=== PATIENT | female | born 1945 | race Caucasian/White ===

== ENCOUNTER 2019-11-04 08:09 | Inpatient (IN) | payer MEDICARE, OTHER, SELFPAY ==
[2019-11-04] VITALS (15 sets, daily range): BP systolic 93–145; BP diastolic 49–67; PULSE 60–85; RESP 9–20; TEMP 36.1–36.9; O2SAT 98–100; BMI 18.8
--- NOTE | 2019-11-04 | DI.RAD.S_ITS ---
PROCEDURE: XR PELVIS 1-2V INDICATIONS: POST OPERATIVE LEFT HIP TECHNIQUE: 1 view of the lower pelvis acquired. COMPARISON: None. FINDINGS: Bones: Patient is status post left total hip arthroplasty, with hardware components in expected positions. The hip joint appears congruent. The visualized bony structures appear intact. Soft tissues: Overlying postoperative changes are noted. No suspicious soft tissue densities. IMPRESSION: Postop changes from left total hip arthroplasty with anatomic alignment. Dictated by: Alphonso Guy M.D. on 11/04/2019 at 14:53 Approved by: Alphonso Guy M.D. on 11/04/2019 at 14:53
--- NOTE | 2019-11-04 | DI.RAD.S_ITS ---
PROCEDURE: XR HIP LT 1V INDICATIONS: INTRAOPERATIVE ANTERIOR TOTAL LEFT HIP TECHNIQUE: 2 view(s) of the hip acquired. COMPARISON: None. FINDINGS: Bones: Patient is status post left hip arthroplasty, with hardware components in expected positions. The hip joint appears congruent. The visualized bony structures appear intact. Soft tissues: Overlying postoperative changes are noted. No suspicious soft tissue densities. IMPRESSION: A single immediate postoperative image shows normal positioning after left total hip arthroplasty. Dictated by: Carl Jerez M.D. on 11/04/2019 at 14:13 Approved by: Carl Jerez M.D. on 11/04/2019 at 14:13
[2019-11-04] MEDS: LACTATED RINGERS 1,000 ML 42 ML IV ×3 (09:05→14:08)
[2019-11-04] MEDS: CELECOXIB 200 MG CAPSULE PO (09:08)
[2019-11-04] MEDS: ACETAMINOPHEN 325 MG TABLET 975 MG PO (09:08)
[2019-11-04] MEDS: PREGABALIN 75 MG CAPSULE PO (09:08)
--- NOTE | 2019-11-04 11:12 | PM.PREOP ---
Pre-operative Note Interval Note History & Physical reviewed/Exam performed by Physician: Yes Changes to H&P: No H&P completed within 30 days and has changed as indicated here:: Plan for L anterior KAY
[2019-11-04] MEDS: CEFAZOLIN 2 GM/100 ML FROZ.PIGGY IV ×2 (12:04→21:25)
--- NOTE | 2019-11-04 12:43 | SUR.OPER ---
Supine on padded Gilliam table with bilateral legs secured in padded positioning boots and suspended in positioning spars, operative leg in traction per surgeon. Head on one pillow. Arm on non-operative side secured on padded armboard <90 degrees abduction. Arm on operative side padded and resting across chest then secured with tape over sheet. Padded perineal post in place per surgeon.
[2019-11-04] MEDS: ROPIVACAINE 0.5% PF 5 MG/ML 20ML VIAL 60 ML INJ (12:49)
[2019-11-04] MEDS: KETOROLAC 30 MG/ML VIAL IV (12:50)
[2019-11-04] MEDS: MORPHINE 4 MG/ML INJ INJ (12:50)
[2019-11-04] MEDS: TRANEXAMIC ACID 1,000 MG VIAL 2000 MG IV (12:51)
--- NOTE | 2019-11-04 14:14 | PM.OP.1 ---
Operative Date/Time/Diagnoses Date of procedure: 11/04/19 Time of procedure: 14:14 Pre-op diagnosis: L hip OA Post-op diagnosis: same Procedure & Clinicians Procedure: L anterior KAY Same procedure as scheduled: Yes Indications: L hip OA Surgeon: Anup Vásquez Supervisor Cytogenetic Laboratory: [facility] Anesthesia Type: Spinal and MAC +/- Operative Notes Findings: L hip OA Closure Type: primary Specimen(s): none sent Prosthetic devices, grafts, tissues, transplants, or devices: [employer]hew R3 acetabular cup 52 mm outer diameter 52 mm liner with 36 mm inner diameter Size 8 standard offset anthology porous femoral stem Oxinium 36+ 0 femoral head 25 mm screw, 15 mm screw Estimated Blood Loss (mL): 200 Blood products transfused: none Procedure in detail: Patient was met in the preoperative holding area with a sense of surgery marked by . All last minute questions were answered. Patient is then brought back to the operating room where a spinal anesthetic was in place. She has been transferred onto the on a table and hand table boots were placed on bilateral feet. The left anterior hip was then prepped and draped normal sterile fashion. A time-out was performed verifying the site and side of surgery as well as the name of the patient. A 7 cm long incision was made over the hip in line with the long axis of the leg. This incision was made using 10. Blade followed by electrocautery and subcutaneous layer followed by a 10. Blade in the tensor fascia. A Allis clamp was then placed on the medial leaflet of the tensor fascia and the tensor was then retracted laterally. A Meyerding was then placed to retract the medial leaflet of the tensor fascia as well as the rectus and the ascending circumfex arteries were then coagulated. Capsulotomy was performed and the superior and inferior leaflets of the capsule were tagged. A reciprocating saw was then used to make a femoral neck cut. The femoral head was then removed with a corkscrew. An anterior acetabular wall retractor was then placed followed by a Cobra over the posterior wall the labrum was then removed as well as the pulvinar. X-ray was then brought in that at this time and reaming was done under fluoroscopic guidance. We reamed to a size 51 Reamer. We subsequently placed a 52 mm cup under fluoroscopic guidance. Two screws were then placed. A neutral 52 mm outside diameter 36 mm inside diameter liner was then placed. A femoral elevation hook was then placed the left leg was then externally rotated rotated 90? no traction was on the leg. The leg was then dropped on the floor and abducted. A Matthews retractor was then placed over the medial aspect of the calcar and a Hohmann was placed over the greater trochanter and the short external rotators and capsule were then released from the shoulder of the femoral neck greater trochanter junction. This gave us good access to the femoral canal. A canal finer was then used followed by a starting broach followed by a 2. Broken up sizing by ones to a size 8 broach this had good rotational stability calcar planer was then used. We trialed with a standard offset and 36 head +0. The hip was reduced the foot was externally rotated to 100? and found to be stable. The hip was then extended by placing the foot on the floor and the hip was again stable x-rays were brought in to verify the length as well as proper canal fill for the femoral stem. The hip was then dislocated the trial components were removed and a size 8 anthology stem with standard offset was placed followed by a 36+ 0 Oxinium head the hip was then reduced a final time taken through range of motion found to be stable the capsule was then closed by closing the tag sutures followed by running Ethibond suture. Local injection was then infiltrated the soft tissues followed by normal saline irrigation. A running 1. Vicryl was then used in the tensor fascia followed by a 1. Running Vicryl in the subcutaneous fat layer followed by 2-0 Vicryl in the superficial subcutaneous layer. Stratafix was then used in the subcuticular followed by Dermabond and a small Aquacel. Complications: none Post-operative Condition: stable Disposition: PACU Plan for aftercare: Weightbearing as tolerated left lower extremity. No precautions. Aspirin 81 mg b.i.d. for 6 weeks for DVT prophylaxis. Patient will be going to a [facility] facility as she does not have anyone at home to help provide care.
[2019-11-04] MEDS: DEXAMETHASONE 10 MG/ML VIAL 8 MG IV (14:35)
[2019-11-04] MEDS: SCOPOLAMINE 1 PATCH TOP (14:35)
[2019-11-04] MEDS: LACTATED RINGERS 1,000 ML 120 ML IV (15:35)
[2019-11-04] MEDS: OXYCODONE IR 5 MG TABLET PO (16:08)
[2019-11-04] MEDS: ACETAMINOPHEN 325 MG TABLET 650 MG PO ×2 (16:08→21:26)
[2019-11-04] MEDS: LACTATED RINGERS 1,000 ML 125 ML IV (16:09)
--- NOTE | 2019-11-04 16:51 | PT-IP ANOTE ---
PT orders received. Pt arrived late to floor and nursing is still assessing. Will follow up for PT eval morning of 11/05/19.
[2019-11-04 17:40] LABS: Add Manual Diff / Slide Review NO; Basophils Absolute Auto 0 /uL (0-100); Basophils Percent Auto 0.2 % (0-2); Eosinophils Absolute Auto 0 /uL (0-450); Hematocrit 35.3 % (36-46); Hemoglobin 11.9 g/dL (12.0-16.0); Lymphocytes Absolute Auto 600 /uL (1100-4500); Lymphocytes Percent Auto 4.7 % (25-40); Mean Corpuscular HGB Conc 33.7 % (30-36); Mean Corpuscular Hemoglobin 29.9 PG (26-34); Mean Corpuscular Volume 88.9 fL (80-100); Monocytes Absolute Auto 500 /uL (0-900); Monocytes Percent Auto 4.1 % (3-14); Neutrophils Absolute Auto 11300 /uL (1500-7000); Platelet Count 241 X10^3/uL (150-400); Red Blood Cell Count 3.98 X10^6/uL (4.0-5.2); Red Cell Distribution Width 14.2 % (11.6-14.8); White Blood Cell Count 12.4 X10^3/uL (4.5-11.0)
[2019-11-04] MEDS: ASPIRIN EC 81 MG TABLET PO (21:26)
[2019-11-04] MEDS: DOCUSATE 100 MG CAPSULE PO (21:26)
[2019-11-05] MEDS: LACTATED RINGERS 1,000 ML 125 ML IV (00:09)
[2019-11-05] MEDS: OXYCODONE IR 5 MG TABLET PO (03:56)
[2019-11-05] MEDS: CEFAZOLIN 2 GM/100 ML FROZ.PIGGY IV (03:57)
[2019-11-05 04:05] VITALS: BP 105/56; PULSE 78; RESP 16; TEMP 37.3; O2SAT 99
--- NOTE | 2019-11-05 06:41 | PC.NURSE ---
Pt has only had a small ammt of pain this night 11/08, she was encouraged to stay on top of it. VSS, lung sounds clear, CMS is intact, and aquacell dressing is clean/dry/intact. Patient has ambulated to the bathroom with ease and FWW. Bed is low and locked, IS was encouraged, SCD's are applied, call light is within reach.
[2019-11-05 06:56] LABS: Hematocrit 27.1 % (36-46); Hemoglobin 9.5 g/dL (12.0-16.0)
--- NOTE | 2019-11-05 07:47 | PM.PNPO.1 ---
Subjective Subjective Date Patient Seen: 11/05/19 Time Patient Seen: 07:48 Interval history: POD #1 s/p will hip arthroplasty anterior approach with Dr. Vásquez. The patient's pain overnight was well controlled. No complaints this morning. She would like go home today. Exam Vital Signs (past 8 hours): - 11/04/19 23:55 11/05/19 04:05 Temperature 98.4 F 99.2 F Pulse Rate 73 78 Respiratory Rate 16 16 Blood Pressure 93/60 105/56 L Pulse Oximetry 98 99 Oxygen Delivery Method Room Air Oxygen Flow Rate 0 Narrative Exam Narrative: Patient lying in bed in no acute distress. She is alert and oriented x3. Calf soft, compressible, nontender bilaterally. Dressing on left hip is CDI. She is able to actively dorsiflex plantar flex. Pulses are symmetrical. SCDs on and functioning. Objective Labs Result Diagrams: 11/05/19 06:25 Labs: Laboratory Results - last 24 hr 11/04/19 11/05/19 17:20 06:25 WBC 12.4 H RBC 3.98 L Hgb 11.9 L 9.5 L Hct 35.3 L 27.1 L MCV 88.9 MCH 29.9 MCHC 33.7 RDW 14.2 Plt Count 241 Neut % (Auto) 91.0 H Lymph % (Auto) 4.7 L Person % (Auto) 4.1 Eos % (Auto) 0.0 L Baso % (Auto) 0.2 Neut # (Auto) 71784 H Lymph # (Auto) 600 L Person # (Auto) 500 Eos # (Auto) 0 Baso # (Auto) 0 Assessment & Plan Post-op Postoperative Procedures: Procedures Operation Date: 11/04/19 10:15 Actual Procedures Side Surgeon p Total Hip Arthroplasty/Anterior Approach Left Anup Vásquez MD Patient mobilized physical therapy today. She will follow anterior hip precautions. Continue current pain control. She will need physical therapy set up on [facility]. ASA for DVT prophylaxis. If patient is mobilizing safely with adequate pain control cage she can go home today.
[2019-11-05 08:00] VITALS: BP 84/48; PULSE 66; RESP 16; TEMP 36.9; O2SAT 100
[2019-11-05 08:24] LABS: Hematocrit 27.3 % (36-46); Hemoglobin 9.6 g/dL (12.0-16.0); Mean Corpuscular Hemoglobin 30.9 PG (26-34); Mean Corpuscular Volume 88.3 fL (80-100); Platelet Count 198 X10^3/uL (150-400); Red Cell Distribution Width 13.9 % (11.6-14.8); White Blood Cell Count 9.1 X10^3/uL (4.5-11.0)
[2019-11-05] MEDS: LEVOTHYROXINE 75 MCG TABLET PO (08:29)
[2019-11-05] MEDS: ESCITALOPRAM 10 MG TABLET 20 MG PO (08:29)
[2019-11-05] MEDS: DOCUSATE 100 MG CAPSULE PO (08:35)
[2019-11-05] MEDS: ASPIRIN EC 81 MG TABLET PO (08:35)
[2019-11-05] MEDS: ACETAMINOPHEN 325 MG TABLET 650 MG PO (08:35)
--- NOTE | 2019-11-05 09:50 | PT.IIE ---
Current Diagnoses Unilateral primary osteoarthritis, left hip (11/04/19) Surgery Performed Operation Date: 11/04/19 10:15 Actual Procedures p Total Hip Arthroplasty/Anterior Approach(Left) - Anup Vásquez MD Surgical History (Last Updated 10/21/19 @ 09:14 by Meeta Jesus RN) H/O: hysterectomy (Acute ~1981) History of facelift (Acute ~2009) Hx of tonsillectomy (Acute ~1955) Medical History (Last Updated 10/21/19 @ 09:18 by Meeta Jesus RN) Anxiety (Acute) Bladder prolapse (Acute) Bradycardia (Acute) Easy bruisability (Acute) Hypothyroidism (Acute) Lyme disease (Acute ~1991) Osteoarthritis (Acute) Raynaud's phenomenon (Acute) Sponge kidney (Acute) TMJ (dislocation of temporomandibular joint) (Acute) Physical Therapy Inpatient Evaluation/Re-Eval M1 PT/OT-IP Prior Functional Status Start: 11/05/19 08:40 Freq: NEEDED Status: Active Protocol: Document 11/05/19 09:32 AW (Rec: 11/05/19 09:50 AW [id number]) Medical Review Prior Functional Status Medical History Reviewed Yes Diet/Fluid Consistency Regular Communication WNL Mobility and Gait Independent without AD. Pt states she was limited to about 1/2 mile walking in the past month due to left hip pain Activities of Daily Living and IADL's Independent with ADL's and IADL's. Pt drives. Social History Household Members friend(s) Living Arrangements House Number of Floors (Floors) Two Floors Number of Stairs To Enter/Railing? Level entrance. Pt enters on main level. Bottom level is an apartment where her friend lives. Her friend is also retired and is available to assist as needed. Home Environment Standard Height Toilet,Tub/ Shower Home Equipment Front Wheel Walker,Straight Cane Employment Status Retired Additional Social History Comment Pt lives on [address]. A friend rents the apartment in her basement and is available to assist. M2 PT-IP Current Condition Start: 11/05/19 08:40 Freq: NEEDED Status: Active Protocol: Document 11/05/19 09:32 AW (Rec: 11/05/19 09:50 AW [id number]) Physical Therapy Current Condition Current Condition Evaluation Date 11/05/19 Treatment Diagnosis s/p L KAY with anterior approach; difficulty in walking Precautions Anterior Hip Precautions No Hip Extension,No Hip External Rotation Weight Bearing Status Weight Bearing Status Weight Bear as Tolerated M3 PT-IP Subjective Start: 11/05/19 08:40 Freq: NEEDED Status: Active Protocol: Document 11/05/19 09:32 AW (Rec: 11/05/19 09:50 AW [id number]) Subjective Physical Therapy Visit Type Type Initial Evaluation Visit Start Time 09:02 Visit Stop Time 09:28 Total Visit Minutes 26 Physical Therapy Visit Comments Patient Comments Pt is pleasant and willing to participate with PT. Patient Goals To go home today - [facility] Therapy Pain Assessment Pain When Pain Assessed During Mobility Pain Present Pain Present Denied Pain Location Left Hip Intensity 0 Scale Used 0/10 at rest; unchanged with mobility Pain Management Techniques Timing of Activity with Medications M4 PT-IP Mobility and Gait Start: 11/05/19 08:40 Freq: NEEDED Status: Active Protocol: Document 11/05/19 09:32 AW (Rec: 11/05/19 09:50 AW [id number]) PT-Bed Mobility Assessment Supine to Sit Supine to Sit Standby Assistance Sit to Supine Sit to Supine Independent Scooting Scooting to Edge of Bed Independent PT-Transfer Assessment Sit to and From Stand Sit to and from Stand Standby Assistance,Use of Upper Extremities Equipment Transfer Assistive Device Gait Belt,Front Wheeled Walker Orthotic/Prosthetic Devices or Brace: No Transfers Transfer Destination Bed,Chair Transfer Technique pt ambulated with FWW Transfer Ability Level of Assist Standby Assistance,Use of Upper Extremities Comments Mobility Comments Pt found sitting up in chair. She stood using FWW SBA and cues to push off chair arms with UE's. After gait and bed mobility training, pt transferred back to chair with FWW SBA. Gait Assessment Gait Gait Assistance Required: Standby Assistance Distance (Feet) 250 Able to Maintain Weight Bearing Status Yes During Gait Assistive Devices Assistive Device Gait Belt,Front Wheeled Walker Orthotic/Prosthetic Devices or Brace: No Gait Deviations General Gait Pattern Antalgic,Decreased Stride Length,Decreased Feet Clearance,Step-to Gait Factors Limiting Gait Function Factors Limiting Gait Function Decreased Strength Comments Gait Comments Pt ambulated with FWW SBA using step-to pattern initially. She was able to equalize her step lengths and weightbearing in response to cues and maintained swing- through pattern for >150 feet with very light weightbearing through UE's on walker. She used the walker appropriately for balance and offloading the L LE. Stair Climbing Assessment Comments Stair Climbing Comments Not assessed. No stairs at home. PT-Balance Assessment Sitting Balance and Reactions Static Sitting Balance Ability Normal Dynamic Sitting Balance Ability Normal Standing Balance and Reactions Static Standing Balance Ability Good Dynamic Standing Balance Ability Good Device Used FWW M5 PT-IP Objective Assessments Start: 11/05/19 08:40 Freq: NEEDED Status: Active Protocol: Document 11/05/19 09:32 AW (Rec: 11/05/19 09:50 AW [id number]) Orientation Orientation/Cognition Level of Alertness Alert Orientation Name,Day of Week,Place, Situation Language Function Ability No Deficits Noted Safety Awareness Understands Safety Issues Memory Description No Deficits Noted Gross Range of Motion Upper Extremity ROM Assessment Within Functional Limits Lower Extremity ROM Assessment Left Impaired Strength Upper Extremity Strength Assessment Within Functional Limits Lower Extremity Strength Assessment Left Impaired Knee L flexion 4-/5 Ankle B 4+/5 Coordination Assessment Gross Coordination Gross Coordination WNL Sensation Assessment Sensation Gross Sensation WNL Comments Sensation Comments No deficits on clinical exam Muscle Tone Muscle Tone WNL Yes M6 PT-IP Treatment Start: 11/05/19 08:40 Freq: NEEDED Status: Active Protocol: Document 11/05/19 09:32 AW (Rec: 11/05/19 09:50 AW [id number]) Physical Therapy Treatment Exercises Exercises Ankle Pumps,Gluteal Sets,Quad Sets,Heel Slides Education Education Provided Precautions,Weight Bearing Status,Post-Op Packet,Safety Other Treatments Other Treatment Performed Educated pt on role of PT, plan of care, anterior hip precautions, weightbearing status, and safe use of FWW. Advised pt to continue using FWW at least until post-op appointment with surgeon and evaluation by outpatient PT. M7 PT-IP Assessment and Plan Start: 11/05/19 08:40 Freq: NEEDED Status: Active Protocol: Document 11/05/19 09:32 AW (Rec: 11/05/19 09:50 AW [id number]) PT Summary Assessment and Plan Potential Rehabilitation Potential Excellent Status of Condition at Evaluation Stable Summary Impairments ROM,Strength,Gait Assessment Summary Keya is a 73yo woman seen on POD1 following L KAY with anterior approach. At baseline , she lives independently in a house on [facility] and has a friend who lives in her basement apartment and is available to assist. On evaluation, pt required no more than SBA and verbal cues for use of UE pushoff with transfers, SBA for gait with FWW. Pt was steady on her feet with good safety awareness. She will be safe to discharge home with friend/neighbor assist and outpatient PT when medically cleared. Goals Bed Mobility Goal Independent Transfer Goal Independent,Front Wheeled Walker Gait Goal Independent,Front Wheel Walker Gait Distance 300 Days to Meet Goals 1 Frequency of Treatment Frequency Of Treatment Twice a Day Treatment Plan Physical Therapy Treatment Plan Bed Mobility Training,Transfer Training,Gait Training, Therapeutic Exercise,Balance Retraining,Post Op Education, Discharge Planning,Hot or Cold Pack,Neuromuscular Re-ed, Coordination Retraining,Manual Therapy Other Recommendations and Next Treatment confirm independence with all Focus mobility, review ther ex and precautions Recommendations To Nursing Amount of Assist Needed Standby Assistance Discharge Recommendations PT Discharge Recommendations Home with Assistance, Outpatient PT
--- NOTE | 2019-11-05 10:32 | CM.DANOTE ---
DCP/Assessment: Reviewed chart. Patient is a 73yr old female admitted to [facility] for elective left KAY performed on 11-04-[address] Vásquez. PCP is Dr. Gould. Primary payor is 1)Medicare 2)[facility]. Met with patient explained CM/SW role. Patient reports that she is feeling good today and plans to d/c home today. Patient reports that she has been cleared by therapy and discharge order has been placed.Patient resides on [facility] [address] [facility] and friend will be picking her up. Patient plans to do outpatient therapy on the [place]. Patient has no stairs and reports that her friend will be staying with her for as long as needed. P: Home today. RN/HOSPITALITY HOUSEKEEPER notified that priority boarding pass will need to be obtained. ELVIA Mack Discharge Planning/Care Management CM Discharge Assessment Start: 11/05/19 10:28 Freq: Status: Active Protocol: Document 11/05/19 10:29 KJS (Rec: 11/05/19 10:31 KJS [id number]) Discharge Planning Assessment Assigned It Account Manager ELVIA Mack Contact Information Nata Aleman (friend) Advance Directives? Yes Advance Directives on File No History Provided By Patient,Medical Record Prior Living Arrangements House Household Members friend(s) Type of transporation used prior to Drives own vehicle admit Independent with ADL's Yes Is patient alert and oriented? Yes Caregiver for Another No DME Already Rented / Owned FWW / Walker Patient/Family Preference OP PT Therapy Barriers to Discharge No Discharge Plan Home Referrals Initiated None needed Whiteboard Updated in Patient Room with Yes name and ext. # of It Account Manager Review Status In Process Next Review Type Continued Stay Review Pre-Anesthesia Assessment Start: 10/21/19 08:48 Freq: Status: Active Protocol: Document 10/21/19 08:48 CAB (Rec: 10/21/19 09:47 CAB [id number]) Pre-Anesthesia Assessment Patient Information Reviewed Via Phone Assessment Assessment Completed With Patient Primary Care Provider Srinivasa Gould Seen Specialist in Last 12 Months Yes Specialist Seen Community Case Manager,Orthopedist Primary Language German Field Spec Required No Height 166.37 cm Weight 55.338 kg Body Mass Index (BMI) 20.0 Hearing Ability Normal Visual Assist Glasses Dentition Type Teeth, Natural Present Barriers to Learning None Other Aids No Hx Anesthesia Reactions No Hx Family Anesthesia Reaction No Hx Malignant Hyperthermia No Hx Blood Transfusions No Anesthesia Review Requested No alcohol intake current alcohol intake frequency holidays/special occasions only Smoking Status Former smoker how long ago did patient quit smoking Teenager Substance Use Type does not use Pain Present Pain Reported Musculoskeletal Symptoms Abnormal Gait,Difficulty Walking,Joint Pain History of Falling (Recent or History of No ) Patient is completely paralyzed or No completely immobile Mental Status Oriented to own ability Urinary Catheter Present No Hx Urinary Self Catheterization No Diabetes No Patient No Lactating No Hx Drug Resistant Organism No Presence of External or Internal Medical No Devices Have you traveled outside the [facility] in the last 30 days? Marital Status / Lives With friend(s) Prior Living Arrangements House Number of Floors (Floors) One Floor Support System Friend(s) Does the Patient Have Assistance After Yes Surgery Patient Discharge Plan Description Return Home Comment Pt was not advised on length of stay per surgeon Feels Safe in Current Environment Yes Been Physically Hurt or Threatened By a No Person in Current Environment Do you have thoughts of harming yourself None or others? Are you currently considering suicide? No Do you have a plan to hurt yourself or No Plan others? Do You Have Any Spiritual Beliefs That No May Affect Your HC Choices? Do You Have Any Cultural Practices That No May Affect Your HC Choices? Comment Jain Who Can We Speak to About Patient's Care Family, friends Identifying Code for Release of Patient Declines to issue Information Health Care Proxy/Next of Kin Chace (son) Health Care Proxy Emergency Contact Name Chace (son) Chace Mead ( friend) Emergency Contact Phone Number Son: [phone] Chace Mead : [phone] Advance Directives? Yes Advance Directives on File No Requested Patient Bring Advanced Yes Directives DOS Power of Gas Stove Servicer Helper Yes Power of Gas Stove Servicer Helper Name Chace (son) Power of Gas Stove Servicer Helper PAC Instructions Do not shave/clip surgical site,Durable medical equipment ,Medications to take/avoid, Nasal antibiotic,No ETOH/ petroleum product on skin DOS, NPO,Post-op transportation,Pre -surgical wash,Sturdy shoes/ comfortable clothes,Do not bring valuables and remove jewelry
[2019-11-05 12:00] VITALS: BP 81/43; PULSE 66; RESP 16; TEMP 37.2; O2SAT 99
== END 2019-11-05 14:15 | disposition home or self-care (01) | DRG 470 ==
PROVIDERS: Physician Assistant Surgical; Admitting Provider Orthopaedic Surgery Adult Reconstructive Orthopaedic Surgery; Visit Provider Orthopaedic Surgery Adult Reconstructive Orthopaedic Surgery
PROC: 0SRB02Z Replacement of Left Hip Joint with Metal on Polyethylene Synthetic Substitute, Open Approach (ICD-10-PCS; CPT 27130; principal; 2019-11-04 10:15)
DX: M16.12 Unilateral primary osteoarthritis, left hip (principal); E03.9 Hypothyroidism, unspecified
CPT/HCPCS: 36415; 72170; 73501; 76000; 85014; 85018; 85025; 85027; 94762; 97116; 97161; C1776; J0690; J1100; J1885; J2270; J2405; J2704